=== PATIENT | female | born 1955 ===

== ENCOUNTER 2018-01-22 08:13 | Day surgery (SDC) | payer OTHER | END 2018-01-22 13:55 | disposition home or self-care (01) | LOC: AMB-ENDOS 08:13 → CIR.AMB 12:30 → AMB-ENDOS 12:30 | DX: K64.8 Other hemorrhoids (principal); K57.30 Diverticulosis of large intestine without perforation or abscess without bleeding; Z12.11 Encounter for screening for malignant neoplasm of colon ==